=== PATIENT | male | born 1970 | race Caucasian/White ===

== ENCOUNTER 2017-09-12 05:04 | Emergency (ER) | payer OTHER ==
[~2017-09-12] VITALS: Ht 162.6 cm; Wt 69.8 kg
[2017-09-12 05:16] VITALS: BP 165/103; Ht 162.6 cm; Wt 69.8 kg
== END 2017-09-12 08:43 | disposition left against medical advice (07) ==
LOC: ED 05:04
DX: Z53.21 Procedure and treatment not carried out due to patient leaving prior to being seen by health care provider (principal)